=== PATIENT | female | born 1955 | race Caucasian/White ===

== ENCOUNTER → 2019-04-23 15:50 | Outpatient (CLI) | payer OTHER, SELFPAY | PROVIDERS: Family Provider Family Medicine; PCP Family Medicine; Referring Provider Otolaryngology Otolaryngology/Facial Plastic Surgery; Visit Provider Otolaryngology Otolaryngology/Facial Plastic Surgery | DX: J02.9 Acute pharyngitis, unspecified (principal) | CPT/HCPCS: 87070 ==

== ENCOUNTER → 2019-06-19 09:37 | Outpatient (CLI) | payer OTHER, SELFPAY ==
--- NOTE | 2019-06-19 09:41 | BI_ITS ---
MAMMOGRAPHY - BILATERAL SCREENING REASON FOR EXAM: Female, 63 years old. Routine annual screening examination. PERTINENT HISTORY: Non-contributory. TECHNIQUE: Digital bilateral breast selene (3D mammographic acquisition) in the CC and MLO projections. 2-D mediolateral oblique (MLO) and craniocaudad (CC) views of both breasts were obtained. CAD: Full Field Digital Mammography with Computer Added Detection was performed. COMPARISON: Comparison is made with prior examination dated March 26, 2018. FINDINGS: Breast Composition: The breasts are extremely dense, which lowers the sensitivity of mammography. There are no dominant masses or suspicious calcifications. No other significant abnormalities are identified. There has been no significant change since the prior study. BI/SCREEN MAMM (CAD) W/SELENE BILAT IMPRESSION: Stable bilateral screening mammogram. Yearly follow-up mammogram recommended. (A) ASSESSMENT CATEGORY: BIRADS Category 1: Negative. A letter regarding these results will be sent to the patient by the facility within 30 days. Approximately 10% of breast cancers are not detected by mammography. A normal mammogram should not delay biopsy of a clinically suspicious abnormality. [id number] Electronically Signed: Agustin Tejada, at 8:30 EST , Service support ,
== END ==
PROVIDERS: Family Provider Family Medicine; PCP Family Medicine; Referring Provider Family Medicine; Visit Provider Family Medicine
DX: Z12.31 Encounter for screening mammogram for malignant neoplasm of breast (principal)
CPT/HCPCS: 77063; 77067

== ENCOUNTER → 2020-07-07 10:32 | Outpatient (CLI) | payer OTHER, SELFPAY ==
--- NOTE | 2020-07-07 10:34 | BI_ITS ---
MAMMOGRAPHY - BILATERAL SCREENING REASON FOR EXAM: Female, 64 years old. Routine annual screening examination. PERTINENT HISTORY: Screening TECHNIQUE: Digital bilateral breast selene (3D mammographic acquisition) in the CC and MLO projections. 2-D mediolateral oblique (MLO) and craniocaudad (CC) views of both breasts were obtained. CAD: Full Field Digital Mammography with Computer Added Detection was performed. COMPARISON: None. FINDINGS: Breast Composition: Dense There are no dominant masses or suspicious calcifications. No other significant abnormalities are identified. BI/SCREEN MAMM (CAD) W/SELENE BILAT IMPRESSION: Stable bilateral screening mammogram. Yearly follow-up mammogram recommended. (A) ASSESSMENT CATEGORY: BIRADS Category 1: Negative. A letter regarding these results will be sent to the patient by the facility within 30 days. Approximately 10% of breast cancers are not detected by mammography. A normal mammogram should not delay biopsy of a clinically suspicious abnormality. [id number] Electronically Signed: Gurjit Chauhan, at 17:02 EST Tel , Service support ,
== END ==
PROVIDERS: PCP Family Medicine; Referring Provider Family Medicine; Visit Provider Family Medicine
DX: Z12.31 Encounter for screening mammogram for malignant neoplasm of breast (principal)
CPT/HCPCS: 77063; 77067

== ENCOUNTER → 2020-10-18 10:53 | Outpatient (CLI) | payer OTHER, SELFPAY ==
[2020-10-18 10:07] VITALS: BMI 26.9
[2020-10-18 11:06] LABS: Absolute Lymphocyte Count 1.98 X10^3/uL (0.83-4.51); Absolute Neutrophil Count 3.1 X10^3/uL (2.0-7.7); Basophil# 0.05 X10^3/uL; Basophil% 0.9 % (0-1); Eosinophil# 0.19 X10^3/uL; Eosinophils% 3.2 % (0-5); Hematocrit 36.6 % (37-47); Lymphocyte # 1.98 X10^3/ul (4.0); Lymphocyte % 33.8 % (19-41); Mean Corp Hgb Conc 30.1 g/dL (32-36); Mean Corpuscular Hgb 24.8 pg (27.0-32.0); Mean Corpuscular Volume 82.4 fL (81-99); Monocyte# 0.52 X10^3/uL; Monocyte% 8.9 % (0-10); NRBC Flagged by Analyzer 0 % (0-5); Neutrophil # 3.09 X10^3/uL (2.7-7.7); Neutrophil % 52.9 % (47-70); Platelet Count 411 K/mm3 (150-450); RBC Distribution Width CV 16.4 % (11.6-14.6); RBC Distribution Width SD 48.4 fl (35.1-43.9); Red Blood Count 4.44 M/mm3 (4.2-5.4); White Blood Count 5.9 K/mm3 (4.4-11.0)
[2020-10-21 08:47] LABS: Immunoglobulin E 3 IU/mL (6-495)
[2020-10-21 09:08] LABS: Alternaria tenuis <0.10 kU/L (Class 0); Ash, White <0.10 kU/L (Class 0); Aspergillus fumigatus <0.10 kU/L (Class 0); Bermuda Grass <0.10 kU/L (Class 0); Birch <0.10 kU/L (Class 0); Black Walnut <0.10 kU/L (Class 0); Cat Hair / Dander,Stand <0.10 kU/L (Class 0); Cedar, Mountain <0.10 kU/L (Class 0); Cladosporium herbarum <0.10 kU/L (Class 0); Cockroach, American <0.10 kU/L (Class 0); Cottonwood <0.10 kU/L (Class 0); D farinae Mite <0.10 kU/L (Class 0); D pteronyssinus <0.10 kU/L (Class 0); Dog Epithelia <0.10 kU/L (Class 0); Elm, American White <0.10 kU/L (Class 0); Immunoglobulin E 4 IU/mL (6-495); Maple/Box Elder <0.10 kU/L (Class 0); Mulberry, White <0.10 kU/L (Class 0); Oak, White <0.10 kU/L (Class 0); Pecan <0.10 kU/L (Class 0); Penicillium Notatum <0.10 kU/L (Class 0); Pigweed, Rough <0.10 kU/L (Class 0); Ragweed, Short/Common <0.10 kU/L (Class 0); Russian Thistle <0.10 kU/L (Class 0); Sheep Sorrel <0.10 kU/L (Class 0); Sycamore, American <0.10 kU/L (Class 0); Timothy Grass <0.10 kU/L (Class 0)
[2020-10-21 09:48] LABS: Mouse Urine <0.10 kU/L (Class 0)
== END ==
PROVIDERS: Referring Provider Internal Medicine Critical Care Medicine; Visit Provider Internal Medicine Critical Care Medicine
DX: R05 Cough (principal)
CPT/HCPCS: 36415; 82785; 85025; 86003

== ENCOUNTER → 2020-11-02 14:47 | Outpatient (CLI) | payer OTHER, SELFPAY ==
[2020-10-18 10:07] VITALS: BMI 26.9
--- NOTE | 2020-11-02 14:51 | CT_ITS ---
STUDY: CT CHEST WITH CONTRAST REASON FOR EXAM: Female, 65 years old. CHRONIC COUGH RADIATION DOSAGE (If Supplied By Facility): CTDIvol = ( 9.66 ) mGy, DLP = ( 221.78 ) mGycm TECHNIQUE: Transaxial imaging was performed following intravenous administration of IV 100mL Isovue-300. Multiplanar coronal and sagittal images were reformatted. Individualized dose optimization techniques were used for this CT. COMPARISON: None. FINDINGS: Small benign-appearing bilateral axillary lymph nodes. The lungs are normal. There is no demonstrated pleural abnormality. There are calcifications of the coronary arteries. Normal mediastinum. Normal hilar regions. Normal enhanced pulmonary arteries. Normal aorta arch and descending thoracic aorta. Normal osseous structures. Fatty infiltration of the liver. 1 cm cyst in the left lobe of the liver. CT/Chest WITH Contrast IMPRESSION: No acute abnormality is seen Electronically Signed: Agustin Tejada MD at 11:30 EDT , Service support ,
[2020-11-02 15:25] LABS: CREATININE FINGERSTICK 1.4 mg/dL (0.55-1.02)
== END ==
DX: R05 Cough (principal)
CPT/HCPCS: 71260

== ENCOUNTER → 2021-03-12 07:35 | Outpatient (CLI) | payer OTHER, SELFPAY ==
[2020-11-29 09:38] VITALS: BMI 26.6
--- NOTE | 2021-03-12 07:39 | CT_ITS ---
INDICATION: LLQ PAIN DIVERTICULITIS EXAMINATION: CT ABDOMEN AND PELVIS WITH CONTRAST - CT Abdomen And Pelvis W/ Contrast Injection TECHNIQUE: Helically acquired images were obtained of the abdomen and pelvis following IV contrast. A radiation dose optimization technique was used for this scan. IV Contrast dosage and agent: EXAM DESCRIPTION: CLINICAL HISTORY: 65 years Female, LLQ PAIN DIVERTICULITIS COMPARISON: Prior CT scan of the abdomen and pelvis obtained on 09/16/2015 TECHNIQUE: A CT scan of the abdomen and pelvis was performed initially without than with IV contrast contrast administration. Oral contrast was also administered. Coronal and sagittal reconstruction images were reviewed. This exam was performed according to our departmental dose-optimization program, which includes automated exposure control, adjustment of the mA and/or kV according to patient size and/or use of iterative reconstruction technique. FINDINGS: The lung bases and the base of the heart are normal. The liver contains a simple cyst in the left lobe of the liver, but is otherwise normal.The spleen is normal.The adrenal glands are normal.The head, body, and tail of the pancreas are normal. The right and left kidneys were examined and appear to be normal. Both ureters appear to be normal, and no obstructive uropathy is identified. The abdominal aortal is normal along its course and distribution. No paraortic lymphadenopathy is seen. No abdominal masses or lesions are seen. The CT scan of the pelvis was then reviewed. The common iliac vessels, external iliac vessels, and common femoral vessels are normal along their course and distribution No pelvis masses or lesions are seen. Diverticulosis is noted involving the distal descending and sigmoid portions of the colon. The appendix is not seen. No pericecal inflammatory reaction is seen. Bone scanning windows of the lumbar spine and pelvis were reviewed in the coronal and sagittal planes and appear to be normal. CT/Abdomen/Pelvis WITH Contrast IMPRESSION: Sigmoid diverticulosis is identified. No evidence of diverticulitis or other abnormalities are seen. Electronically Signed: Gurjit Chauhan DO at 9:42 EDT Tel , Service support ,
[2021-03-12 07:55] LABS: CREATININE FINGERSTICK 0.8 mg/dL (0.55-1.02); EGFR FINGERSTICK > 60.0000 mL/min (>60)
== END ==
PROVIDERS: PCP Family Medicine; Referring Provider Internal Medicine Gastroenterology; Visit Provider Internal Medicine Gastroenterology
DX: K57.30 Diverticulosis of large intestine without perforation or abscess without bleeding (principal)
CPT/HCPCS: 74177; Q9967

== ENCOUNTER 2021-08-13 07:52 | Outpatient (CLI) | payer OTHER, SELFPAY ==
--- NOTE | 2021-08-13 07:55 | BI_ITS ---
MAMMOGRAPHY - BILATERAL SCREENING REASON FOR EXAM: Female, 65 years old. Routine annual screening examination. PERTINENT HISTORY: Non-contributory. Remote right excisional breast biopsy. TECHNIQUE: Digital bilateral breast selene (3D mammographic acquisition) in the CC and MLO projections. 2-D mediolateral oblique (MLO) and craniocaudad (CC) views of both breasts were obtained. CAD: Full Field Digital Mammography with Computer Added Detection was performed. COMPARISON: Comparison is made with prior study in 07/07/2020 and 06/19/2019. FINDINGS: Breast Composition: The breasts are heterogeneously dense, which may obscure small masses. There are no dominant masses or suspicious calcifications. Stable small benign-appearing bilateral axillary lymph nodes. No other significant abnormalities are identified. There has been no significant change since the prior study. BI/SCRN MAMM (CAD)W/SELENE BILAT IMPRESSION: Stable bilateral screening mammogram. Yearly follow-up mammogram recommended. (A) ASSESSMENT CATEGORY: BIRADS Category 2: Benign. A letter regarding these results will be sent to the patient by the facility within 30 days. Approximately 10% of breast cancers are not detected by mammography. A normal mammogram should not delay biopsy of a clinically suspicious abnormality. [id number] Electronically Signed: Agustin Tejada MD at 8:35 EST , Service support ,
== END 2021-08-13 23:59 | disposition home or self-care (01) ==
LOC: OPBI 07:53
PROVIDERS: PCP Family Medicine; Visit Provider Family Medicine
DX: Z12.31 Encounter for screening mammogram for malignant neoplasm of breast (principal)
CPT/HCPCS: 77063; 77067

== ENCOUNTER → 2022-07-05 | Outpatient (CLI) | payer OTHER, SELFPAY ==
--- NOTE | 2022-07-05 09:21 | BI_ITS ---
MAMMOGRAPHY - BILATERAL SCREENING 3-D TOMOSYNTHESIS REASON FOR EXAM: Female, 66 years old. Generalized breast pain and tenderness for years. Gradually getting worse over the past year. PERTINENT HISTORY: July 07, 2020, August 13, 2021.. TECHNIQUE: 2-D mammograms and 3-D Tomosynthesis of the breast (s) were performed. CAD was performed. COMPARISON: None. FINDINGS: The breast composition is heterogeneously dense that can obscure small breast masses. No dominant masses, suspicious microcalcifications, architectural distortion, skin thickening or retraction. No significant change since the prior study. BI/DIAG MAMM W/CAD, BILAT IMPRESSION: No interval change and no mammographic signs of malignancy. Routine yearly mammograms recommended. ASSESSMENT CATEGORY: BIRADS Category 1: Negative. A letter regarding these results will be sent to the patient by the facility within 30 days. FOLLOW UP RECOMMENDATION: Yearly follow up mammogram recommended. (A) Approximately 10% of breast cancers are not detected by mammography. A normal mammogram should not delay biopsy of a clinically suspicious abnormality. Electronically Signed: Rafael Shepherd, at 10:13 [facility] ,
== END | disposition home or self-care (01) ==
LOC: OPBI 09:20
PROVIDERS: PCP Family Medicine; Referring Provider Student in an Organized Health Care Education/Training Program; Visit Provider Student in an Organized Health Care Education/Training Program
DX: N64.4 Mastodynia (principal)
CPT/HCPCS: 77062; 77066; G0279

== ENCOUNTER → 2023-06-18 | Outpatient (CLI) | payer OTHER, MEDICARE, SELFPAY | END | disposition home or self-care (01) | LOC: LAB 11:30 | PROVIDERS: PCP Family Medicine; Referring Provider Ophthalmology; Visit Provider Ophthalmology | DX: H04.123 Dry eye syndrome of bilateral lacrimal glands (principal); H16.143 Punctate keratitis, bilateral | CPT/HCPCS: 36415 ==

== ENCOUNTER → 2023-09-01 | Outpatient (CLI) | payer MEDICARE, OTHER, SELFPAY ==
--- NOTE | 2023-09-01 12:10 | BI_ITS ---
MAMMOGRAPHY - BILATERAL SCREENING REASON FOR EXAM: Female, 68 years old. Routine annual screening examination. PERTINENT HISTORY: Non-contributory. Remote right excisional breast biopsy. TECHNIQUE: Digital bilateral breast selene (3D mammographic acquisition) in the CC and MLO projections. 2-D mediolateral oblique (MLO) and craniocaudad (CC) views of both breasts were obtained. CAD: Full Field Digital Mammography with Computer Added Detection was performed. COMPARISON: Comparison is made with prior study dated July 05, 2022 and August 13, 2021. FINDINGS: Breast Composition: The breasts are heterogeneously dense, which may obscure small masses. There are no dominant masses or suspicious calcifications. No other significant abnormalities are identified. There has been no significant change since the prior study. BI/SCRN MAMM (CAD)W/SELENE BILAT IMPRESSION: Stable bilateral screening mammogram. Yearly follow-up mammogram recommended. (A) ASSESSMENT CATEGORY: BIRADS Category 1: Negative. A letter regarding these results will be sent to the patient by the facility within 30 days. Approximately 10% of breast cancers are not detected by mammography. A normal mammogram should not delay biopsy of a clinically suspicious abnormality. [id number] Electronically Signed: Agustin Tejada MD at 15:10 EST ,
== END | disposition home or self-care (01) ==
LOC: OPBI 12:08
PROVIDERS: PCP Family Medicine; Referring Provider Family Medicine; Visit Provider Family Medicine
DX: Z12.31 Encounter for screening mammogram for malignant neoplasm of breast (principal)
CPT/HCPCS: 77063; 77067

== ENCOUNTER → 2024-03-09 | Outpatient (CLI) | payer MEDICARE, OTHER, SELFPAY ==
--- NOTE | 2024-03-09 09:58 | RAD_ITS ---
STUDY: X-RAY - ESOPHAGUS (BARIUM SWALLOW) WITH FLUOROSCOPY REASON FOR EXAM: Female, 68 years old. GERD, DYSPHAGIA *12MM TABLET* TECHNIQUE: 14 view(s) of the esophagus were obtained following swallowing of barium. FLUOROSCOPY TIME (if supplied): (18 seconds) minutes/seconds. 8.79 mGy. COMPARISON: None. FINDINGS: There is no demonstrated esophageal foreign body. There is no demonstrated stricture or mucosal abnormality. Normal gastroesophageal junction, without a demonstrated hiatal hernia. The patient ingested a 12 mm tablet of barium without any difficulty. Normal visualized aortic arch and descending thoracic aorta. Normal visualized pulmonary parenchyma. Normal visualized osseous structures of the thorax. RAD/Esophagus Dual Contrast IMPRESSION: Normal plain film x-ray examination (barium swallow) of the esophagus. Electronically Signed: Agustin Tejada MD at 11:15 EDT ,
== END | disposition home or self-care (01) ==
LOC: RAD 09:52
PROVIDERS: PCP Family Medicine; Referring Provider Internal Medicine Gastroenterology; Visit Provider Internal Medicine Gastroenterology
DX: K21.9 Gastro-esophageal reflux disease without esophagitis (principal); R47.02 Dysphasia
CPT/HCPCS: 74221

== ENCOUNTER → 2024-03-11 | Outpatient (CLI) | payer MEDICARE, OTHER, SELFPAY | END | disposition home or self-care (01) | LOC: LABSPEC 15:17 | PROVIDERS: PCP Family Medicine; Referring Provider Otolaryngology; Visit Provider Otolaryngology | DX: J02.9 Acute pharyngitis, unspecified (principal) | CPT/HCPCS: 87070; 87077 ==

== ENCOUNTER → 2024-04-13 | Outpatient (CLI) | payer MEDICARE, OTHER, SELFPAY | END | disposition home or self-care (01) | LOC: LABSPEC 15:24 | PROVIDERS: PCP Family Medicine; Referring Provider Otolaryngology; Visit Provider Otolaryngology | DX: J02.9 Acute pharyngitis, unspecified (principal) | CPT/HCPCS: 87070 ==

== ENCOUNTER → 2024-06-08 | Outpatient (CLI) | payer MEDICARE, OTHER, SELFPAY ==
[2024-06-08 11:53] LABS: Absolute Lymphocyte Count 1.68 X10^3/uL (0.83-4.51); Absolute Neutrophil Count 2.7 X10^3/uL (2.0-7.7); Basophil# 0.03 X10^3/uL; Basophil% 0.6 % (0-1); Eosinophil# 0.05 X10^3/uL; Hematocrit 35.1 % (37-47); Hemoglobin 11.4 g/dL (12.0-15.0); Lymphocyte # 1.68 X10^3/ul (0.83-4.51); Lymphocyte % 34.7 % (19-41); Mean Corp Hgb Conc 32.5 g/dL (32-36); Mean Corpuscular Hgb 30.6 pg (27.0-32.0); Mean Corpuscular Volume 94.1 fL (81-99); Mean Platelet Vol. 9.3 fl (6.2-12.0); Monocyte# 0.35 X10^3/uL; Monocyte% 7.2 % (0-10); NRBC Flagged by Analyzer 0 % (0-5); Neutrophil # 2.72 X10^3/uL (2.7-7.7); Neutrophil % 56.3 % (47-70); Platelet Count 295 K/mm3 (150-450); RBC Distribution Width CV 13.3 % (11.6-14.6); RBC Distribution Width SD 45.4 fl (35.1-43.9); Red Blood Count 3.73 M/mm3 (4.2-5.4); White Blood Count 4.8 K/mm3 (4.4-11.0)
[2024-06-08 12:00] LABS: Erythrocyte Sedimentation Rate 2 mm/hr (0-30)
[2024-06-08 12:34] LABS: ALB/GLOB Ratio 1.2 RATIO (0.9-2.4); AST(SGOT) 20 U/L (15-37); Alanine Aminotransfer ALT/SGPT 30 U/L (13-56); Albumin, Serum 3.9 g/dL (3.2-5.0); Alkaline Phosphatase 94 U/L (45-117); Anion Gap 4 (5-15); BUN 8 mg/dL (7-18); BUN/Creat Ratio 8.3 RATIO (10-20); CRP < 2.90 mg/L (0.0-3.0); Calcium,Total 9.3 mg/dL (8.5-10.1); Chloride 109 mmol/L (98-107); Creatinine, Serum 0.97 mg/dL (0.55-1.02); EST Glomerular Filtration Rate 61 mL/min (>60); Est Glom Filt Rate - Afr Amer 74 mL/min (>60); Free T3 2.8 pg/mL (2.18-3.98); Globulin 3.2 g/dL (2.2-4.2); Glucose 96 mg/dL (74-106); LDH 154 U/L (84-246); Potassium 3.6 mmol/L (3.5-5.1); Protein, Total 7.1 g/dL (6.4-8.2); Sodium Level 140 mmol/L (136-145); T4 Free Direct 0.91 ng/dL (0.76-1.46)
[2024-06-14 17:07] LABS: Anti-Centromere B Ab <0.2 AI (0.0-0.9); Anti-Chromatin <0.2 AI (0.0-0.9); Anti-Jo <0.2 AI (0.0-0.9); Anti-Scleroderma-70 AB <0.2 AI (0.0-0.9); Anti-dsDNA Ab <1 IU/mL (0-9); Beef <0.10 kU/L (Class 0); Chocolate <0.10 kU/L (Class 0); Codfish <0.10 kU/L (Class 0); Corn <0.10 kU/L (Class 0); Egg, Whole <0.10 kU/L (Class 0); Milk (Cow) <0.10 kU/L (Class 0); Mussels <0.10 kU/L (Class 0); Peanut <0.10 kU/L (Class 0); Pork <0.10 kU/L (Class 0); RNP Ab 0.3 AI (0.0-0.9); SJOGREN'S Anti-SS-A test < 0.2 AI (0.0-0.9); SJOGREN'S Anti-SS-B test < 0.2 AI (0.0-0.9); Salmon <0.10 kU/L (Class 0); Shrimp <0.10 kU/L (Class 0); Smith Ab <0.2 AI (0.0-0.9); Soybean <0.10 kU/L (Class 0); Tuna <0.10 kU/L (Class 0); Wheat <0.10 kU/L (Class 0)
[2024-06-15 00:07] LABS: ACCA 12 units (0-90); ALCA 4 units (0-60); AMCA 53 units (0-100); Albumin 4.2 g/dL (2.9-4.4); Alpha-1-Globulins 0.2 g/dL (0.0-0.4); Alpha-2-Globulins 0.5 g/dL (0.4-1.0); Cytoplasmic Ab (C-ANCA) <1:20 titer (Neg:<1:20); Endomysial Antibody IgA Negative (Negative); Gamma Globulin 0.7 g/dL (0.4-1.8); Immunoglobulin A 109 mg/dL (87-352); Immunoglobulin E < 2 IU/mL (6-495); Immunoglobulin G 745 mg/dL (586-1602); Immunoglobulin M 135 mg/dL (26-217); PROEL- TOTAL PROTEIN 6.6 g/dL (6.0-8.5); Perinuclear Ab (P-ANCA) <1:20 titer (Neg:<1:20); gASCA 31 units (0-50); t-Transglutaminase IgA <2 U/mL (0-3)
== END | disposition home or self-care (01) ==
LOC: LAB 11:21
PROVIDERS: PCP Family Medicine; Referring Provider Student in an Organized Health Care Education/Training Program; Visit Provider Student in an Organized Health Care Education/Training Program
DX: K21.9 Gastro-esophageal reflux disease without esophagitis (principal); K58.9 Irritable bowel syndrome, unspecified; R19.7 Diarrhea, unspecified
CPT/HCPCS: 36415; 80053; 82784; 82785; 83516; 83615; 84165; 84439; 84443; 84481; 85025; 85652; 86003; 86005; 86036; 86037; 86140; 86225; 86235; 86255; 86334; 86671

== ENCOUNTER → 2024-06-19 | Outpatient (CLI) | payer MEDICARE, OTHER, SELFPAY ==
[2024-06-23 14:10] LABS: Calprotectin, Stool 54 ug/g (0-120)
[2024-06-23 15:09] LABS: Pancreatic Elastase, Fecal > 800 (>200)
== END | disposition home or self-care (01) ==
LOC: LABSPEC 10:28
PROVIDERS: PCP Family Medicine; Referring Provider Student in an Organized Health Care Education/Training Program; Visit Provider Student in an Organized Health Care Education/Training Program
DX: R19.7 Diarrhea, unspecified (principal); K58.9 Irritable bowel syndrome, unspecified; K21.9 Gastro-esophageal reflux disease without esophagitis
CPT/HCPCS: 82653; 83630; 83993; 87177; 87209; 87329; 87493; 87506

== ENCOUNTER → 2024-07-22 | Outpatient (CLI) | payer MEDICARE, OTHER, SELFPAY ==
--- NOTE | 2024-07-22 12:40 | NM_ITS ---
CLINICAL: 68-year-old female with history of refractory gastroesophageal reflux disease. SEMI-SOLID PHASE 99m Tc SULFUR COLLOID GASTRIC EMPTYING STUDY COMPARISON: None available FINDINGS: The patient was administered 1.2 mCi of 99m Tc sulfur colloid mixed with oatmeal and consumed per os. Image acquisitions in the anterior-posterior projections were obtained for 60 minutes. There is prompt visualization of the stomach. There is no gastroesophageal reflux identified. The T ? linear fit was calculated to be 27.39 minutes, (Normal: 12-56 minutes). NM/Gastric Emptying Study IMPRESSION: 1. NORMAL 99m Tc sulfur colloid semi-solid phase (oatmeal) gastric emptying imaging examination. A. There is normal and preserved semi-solid phase gastric emptying compared to normal controls. (Josette et al, J Nucl Med Tech 38: 186, 2010). Electronically Signed: Vidal Escobedo DO at 10:42 EST ,
== END | disposition home or self-care (01) ==
LOC: NM 12:39
PROVIDERS: PCP Family Medicine; Referring Provider Student in an Organized Health Care Education/Training Program; Visit Provider Student in an Organized Health Care Education/Training Program
DX: K21.9 Gastro-esophageal reflux disease without esophagitis (principal)
CPT/HCPCS: 78264; A9541

== ENCOUNTER 2024-11-05 05:23 | Day surgery (SDC) | payer MEDICARE, OTHER, SELFPAY ==
[2024-11-05] VITALS (8 sets, daily range): BP systolic 90–118; BP diastolic 52–73; PULSE 53–62; RESP 15–16; TEMP 36.8–37.1; O2SAT 95–100; BMI 26.8
--- NOTE | 2024-11-05 06:42 | PCM.PRE.AN2 ---
ASA Classification* ASA Classification ASA Classification: 2 Assessment & Plan Anesthesia* Anesthesia Assessment Anesthesia Assessment: Discussed sedation and/or anesthesia options, risks, benefits, and alternatives with patient/parents/legal guardian/POA. Questions invited. The patient/parents/legal guardian/POA seems to understand and agrees to proceed with anesthesia plan. Reviewed the physical assessment, medical history, allergy history and patient home medications list prior to surgery/procedure/anesthetic and documented any changes. Performed airway and anesthesia risk assessments. Anesthesia Type Anesthesia Type: MAC Anesthesia Focused Assessment* Temperature: 98.8 F Pulse Rate: 62 Blood Pressure: 118/73 Respiratory Rate: 16 Pulse Ox: 100 Airway Assessment Mouth opens: >3 cm Mallampati Score: II Focused Labs Anesthesia Preop lab: CBC WBC 4.8 K/mm3 (4.4-11.0) 06/08/24 11:06/08/24 RBC 3.73 M/mm3 (4.2-5.4) L 06/08/24 11:06/08/24 Hgb 11.4 g/dL (12.0-15.0) L 06/08/24 11:26 06/08/24 Hct 35.1 % (37-47) L 06/08/24 11:26 06/08/24 Plt Count 295 K/mm3 (150-450) 06/08/24 11:26 06/08/24 CHEMISTRY Potassium 3.6 mmol/L (3.5-5.1) 06/08/24 11:26 06/08/24 Sodium 140 mmol/L (136-145) 06/08/24 11:26 06/08/24 BUN 8 mg/dL (7-18) 06/08/24 11:06/08/24 Creatinine 0.97 mg/dL (0.55-1.02) 06/08/24 11:06/08/24 Glucose 96 mg/dL (74-106) 06/08/24 11:06/08/24 TSH 2.250 uIU/mL (0.358-3.740) 06/08/24 11:06/08/24 COAG Pre-Assessment Diagnosis/Proposed Procedure Planned Operative Procedure(s): CSCOPE Anesthesia History Anesthesia History - commercial title examiner: Anesthesia History - commercial title examiner Hx Hospitalization No 11/03/24 10:15 Any Problems With Anesthesia No 11/03/24 10:15 Cholinesterase deficiency No 11/03/24 10:15 You/Your Family Experience No 11/03/24 10:15 fever (hyperthermia) with Relationship Recent Exposure to Contagious No 11/05/24 05:52 Disease Does patient have nerve No 11/03/24 10:15 stimulator Patient instructed to have device shut off --Does patient have Pacemaker No 11/05/24 05:52 or ICD? When Was Last Pacemaker Check QUESTION #4 FULL TEXT: You/Your Family Experience fever (hyperthermia) with Anesthesia Last Oral Intake Last Oral intake: Last Oral Intake NPO since :30 11/05/24 05:52 Meds taken in AM with sips of Yes 11/05/24 05:52 water? Meds patient instructed to PANTOPRAZOLE 11/05/24 05:52 take am of surgery LORAZEPAM PONV PONV - commercial title examiner: PONV - commercial title examiner Female Yes 11/03/24 10:15 HX of Motion Sickness Yes 11/03/24 10:15 HX of N/V After Surgery No 11/03/24 10:15 Non-Smoker Yes 11/03/24 10:15 Duration of Surgery greater No 11/03/24 10:15 than 60 minutes Number of Risk Factors 3 11/03/24 10:15 PONV Score Moderate Risk 11/03/24 10:15 Height & Weight Height & Weight: Anesthesia: Height & Weight Height 5 ft 4 in 11/05/24 05:52 Weight: 70.8 kg 11/05/24 05:52 Body Mass Index (BMI) 26.8 11/05/24 05:52 Respiratory Assessment Respiratory Assessment - commercial title examiner: Respiratory Tract Infection Hx - commercial title examiner Hx Respiratory Tract Infection No 11/03/24 10:15 STOP Sleep Apnea STOP Sleep Apnea - commercial title examiner: STOP Sleep Apnea - commercial title examiner Hx Hypertension No 11/03/24 10:15 Hx Sleep Apnea Yes: WEARS APAP 11/03/24 10:15 CPAP No 11/03/24 10:15 BIPAP No 11/03/24 10:15 Do you snore loudly (louder than talking or can be heard Do you often feel tired/ fatigued/ sleepy during daytime? Has anyone observed you stop breathing during sleep? STOP Results Positive 11/03/24 10:15 QUESTION #5 FULL TEXT : Do you snore loudly (louder than talking or can be heard through closed doors)? Tobacco Use History Tobacco Use History - commercial title examiner: Tobacco Use History - commercial title examiner Tobacco Use Smoking Status Former smoker 11/03/24 10:15 Hx Tobacco Use No 11/03/24 10:15 Years Smoking Packs Smoked per Day Smoking Cessation Date was No - quit smoking greater 11/03/24 10:15 within the last 15 years than 15 years ago Hx Smoking Cessation Date Hx Smoking Cessation No 11/03/24 10:15 Counseling Hematologic Medial History Hematologic Hx - commercial title examiner: Hematologic Medical Hx - blood tester fowl Hx of Blood Transfusion No 11/03/24 10:15 Hx of Transfusion in last 3 No 11/03/24 10:15 Months Date of Last Transfusion (if within last 3 months) Ever experience any problems No 11/03/24 10:15 with transfusion(s)? Specify any problems Hx of Preganancy in last 3 No 11/03/24 10:15 Months Nurse Filling Out Transfusion DSCHRIBER 11/03/24 10:15 & Questions: Date: 11/03/24 11/03/24 10:15 Time: 10:17 11/03/24 10:15 Patient unable to answer at this time (ie. confused, unrespo /Reproduction History /Reproductive History - commercial title examiner: /Reproductive Hx- commercial title examiner Hx Now No 11/03/24 10:15 Gestational Age (in weeks): EDC: Hx Hx Para Hx Section SAB No 11/03/24 10:15 PFSH Medical History BiPAP (biphasic positive airway pressure) dependence Wears glasses Post-menopausal Claustrophobia Depression Anxiety Arthritis Bladder disease Low iron Easy bruising Restless legs History of hiatal hernia Esophageal spasm History of IBS History of diverticulitis Gastric reflux Former smoker History of stress test Cardiology follow-up encounter History of irregular heartbeat Home Medications ?Medication ?Instructions ?Recorded ?Last Taken ?Type estradiol 1 mg tablet 0.5 mg PO DAILY 10/17/20 11/04/24 History lorazepam 1 mg tablet 1 mg PO TID PRN Anxiety 10/17/20 11/05/24 History tramadol 50 mg tablet 50 mg PO Q8H PRN pain 10/18/20 Unknown History pantoprazole 40 mg tablet,delayed 40 mg PO QDAY 04/23/24 11/05/24 History release ascorbic acid (vitamin C) 500 mg 500 mg PO QDAY 09/07/24 11/04/24 History tablet cholecalciferol (vit D3) 137.5 mcg 1 tab PO QDAY 09/07/24 11/04/24 History (5,500 unit)-vit K2 200 mcg tablet magnesium 250 mg tablet 250 mg PO QDAY 09/07/24 11/04/24 History vits no.126-ferrous fum 1 tab PO DAILY 09/07/24 11/03/24 History 28 mg iron-folic acid 800 mcg tablet (Classic ) turmeric 400 mg capsule 400 mg PO DAILY 09/07/24 11/03/24 History vitamin B complex 1 cap PO QDAY 09/07/24 11/03/24 History famotidine 40 mg tablet 40 mg PO QHS 11/03/24 11/04/24 History Allergy/AdvReac Type Severity Reaction Status Date / Time Sulfa (Sulfonamide Allergy Other Verified 11/03/24 10:13 Antibiotics) Family History Other No pertinent family history Surgical History History of esophagogastroduodenoscopy (EGD) Hx of colonoscopy Hx of hysterectomy Hx of left knee surgery Hx of repair of ear bone Social History Smoking Status: Former smoker quit date: 08/11/02 alcohol intake: current alcohol intake frequency: a few times a week substance use type: does not use Review of Systems (Anesthesia) ROS Narrative System reviewed and no additional complaints, except as documented.
--- NOTE | 2024-11-05 07:02 | PCM.HP.STD ---
HPI - General General Date of Admission: 11/05/24 Date of Service: 11/05/24 Chief Complaint: blood in the stool HPI Narrative JORGE GOMEZ, is a 69 F who presents for colonoscopy today [facility] established 10.. with complaints of GERD and diarrhea. Pt has been on PPI therapy for many years but stopped working recently. She has tried Dexilant from a friend. Last EGD in Apr 2024 with gastris and small hiatal hernia. Normal colonoscopies in the past. *Start famotidine in the evening Biochemical work up; RAST wnl, CBC wnl, CMP wnl, IBD panel normal, stool normal GES; 27 min normal OV 1..25;Pt heartburn has been well controlled with pantoprazole and famotidine PRN. SHe still has some heartburn on occasion and with certain foods. She is happy with current treatment. She continues to have issues loose stools and frequent bm. This affects her ability to leave the house as she is worried about having a bm. Her last colonoscopy was in [address] Castillo with normal findings and diverticulosis. For the past couple of weeks, she has had blood in her stool and in the bowel. She is having rectal pain that is sharp with bm and with certain movements. [facility] Medical History BiPAP (biphasic positive airway pressure) dependence Wears glasses Post-menopausal Claustrophobia Depression Anxiety Arthritis Bladder disease Low iron Easy bruising Restless legs History of hiatal hernia Esophageal spasm History of IBS History of diverticulitis Gastric reflux Former smoker History of stress test Cardiology follow-up encounter History of irregular heartbeat Home Medications ?Medication ?Instructions ?Recorded ?Last Taken ?Type estradiol 1 mg tablet 0.5 mg PO DAILY 10/17/20 11/04/24 History lorazepam 1 mg tablet 1 mg PO TID PRN Anxiety 10/17/20 11/05/24 History tramadol 50 mg tablet 50 mg PO Q8H PRN pain 10/18/20 Unknown History pantoprazole 40 mg tablet,delayed 40 mg PO QDAY 04/23/24 11/05/24 History release ascorbic acid (vitamin C) 500 mg 500 mg PO QDAY 09/07/24 11/04/24 History tablet cholecalciferol (vit D3) 137.5 mcg 1 tab PO QDAY 09/07/24 11/04/24 History (5,500 unit)-vit K2 200 mcg tablet magnesium 250 mg tablet 250 mg PO QDAY 09/07/24 11/04/24 History vits no.126-ferrous fum 1 tab PO DAILY 09/07/24 11/03/24 History 28 mg iron-folic acid 800 mcg tablet (Classic ) turmeric 400 mg capsule 400 mg PO DAILY 09/07/24 11/03/24 History vitamin B complex 1 cap PO QDAY 09/07/24 11/03/24 History famotidine 40 mg tablet 40 mg PO QHS 11/03/24 11/04/24 History Allergy/AdvReac Type Severity Reaction Status Date / Time Sulfa (Sulfonamide Allergy Other Verified 11/03/24 10:13 Antibiotics) Family History Other No pertinent family history Surgical History History of esophagogastroduodenoscopy (EGD) Hx of colonoscopy Hx of hysterectomy Hx of left knee surgery Hx of repair of ear bone Social History Smoking Status: Former smoker quit date: 08/11/02 alcohol intake: current alcohol intake frequency: a few times a week substance use type: does not use ROS Constitutional Constitutional: Denies fatigue, fever(s), poor appetite, weight gain or weight loss Gastrointestinal Gastrointestinal: Denies belching, bloating, change in bowel habits, change in stool character, chewing difficulty, coffee ground emesis, constipation, cramping, diarrhea, dyspepsia, dysphagia, early satiety, excessive flatus, fecal incontinence, heartburn, hematemesis, hematochezia, hemorrhoids, loose stools, melena, nausea, odynophagia, rectal bleeding, tenesmus, vomiting or weight changes Vital Signs Vital Signs Vital Signs: 11/05/24 05:52 11/05/24 05:52 11/05/24 06:42 Temperature 98.8 F 98.8 F Temperature Source Temporal Pulse Rate 62 62 Respiratory Rate 16 16 Respiratory Pattern Normal Blood Pressure 118/73 118/73 Blood Pressure Mean 88 Blood Pressure Source Monitor Blood Pressure Position Semi-Fowlers Blood Pressure Location Left Arm Pulse Ox 100 100 Oxygen Delivery Method Room Air Weight Weight: 156 lb 1.396 oz Body Mass Index (BMI) 26.8 Physical Exam Const alert, oriented x3, no apparent distress and healthy appearing General Appearance: cooperative GI normal to inspection, nondistended, normoactive bowel sounds, soft to palpation, non-tender and non-distended Percussion: normal to percussion Rectal Exam: deferred Assessment & Plan Assessment/Plan (1) Frequent bowel movements: (2) Rectal pain: (3) Acid reflux: PLAN: Assessment and Plan Assessment and Plan (1) Rectal pain: Status: Acute Plan: This is a 69 yo female pt here today for f/u regarding heartburn and loose stools. Heartburn is well controlled with diet, Pantoprazole 40 mg daily and famotidine 40 mg PRN. Her main concern is her frequent bm and occasional loose stools. This prevents her form leaving the home. Stool tests were negative for inflammation and normal fecal elastase. She was positive for salmonella in her stool. Last colonoscopy in 2020 with diverticulosis. She has new sharp rectal pain with bm and movements. I recommended diltiazem/lidocaine ointment for presumed anal fissure but declined. Over the past couple of weeks she has noted blood in her stool and in the bowel. She does have a hx of diverticulosis and what sounds like an anal fissure both of which could cause this bleeding.SHe would prefer to undergo colonoscopy to assess her lower GI tract as the bleeding is worrisome to her. She will be scheduled for this. -Continue Pantoprazole 40 mg daily -Continue famotidine 40 mg PRN -Colonoscopy -f/u in 3 months (2) Acid reflux: Status: Acute (3) Frequent bowel movements: Status: Acute
--- NOTE | 2024-11-05 07:26 | PCM.POST.ANE ---
Anesthesia: Postop Eval I Current Vital Signs Temperature: 98.2 F Pulse Rate: 57 Blood Pressure: 100/52 Respiratory Rate: 15 Pulse Ox: 97 Oxygen Delivery Method: Room Air Assessment Airway patent: Yes Spontaneous unlabored respirations: Yes Mental status: Asleep nausea: No Vomiting: No Anesthesia Complication: No Fluid Hydration Crystalloid volume administer (ml): 40 Total IV fluid infused: 40 Progress Note Anesthesia document: Postop Eval 1 completed: Yes
--- NOTE | 2024-11-05 07:27 | OP.CCLET_ITS ---
11/05/2024 Herman Diaz Re : Colonoscopy procedure for Yamini Diaz This procedure was performed on Tuesday, November 05, 2024. My impressions and recommendations are as follows: Impressions : - Anal fissure found on perianal exam. - Diverticulosis in the entire examined colon. - Non-bleeding internal hemorrhoids. - The examination was otherwise normal on direct and retroflexion views. - No specimens collected. Recommendations : - Discharge patient to home. - Resume previous diet. - Continue present medications. - Repeat colonoscopy in 5 years for surveillance. My findings are described in the full procedure note, which is enclosed. If I can be of further assistance, please feel free to contact me at . Sincerely, Claude Call, 11/05/2024 7:26:27 AM This report has been signed electronically.
--- NOTE | 2024-11-05 07:27 | OP.COLON_ITS ---
Patient Name: Yamini Walker Procedure Date: 11/05/2024 6:13 AM Date of : 1955 Age: 69 Procedure: Colonoscopy Indications: Screening for colorectal malignant neoplasm Providers: Claude Call DO Referring MD: Herman Diaz Medicines: Monitored Anesthesia Care Patient Profile: This is a 69 year old female. Refer to note in patient chart for documentation of history and physical. Last Colonoscopy: date unknown. Unable to locate last colonoscopy report. Complications: No immediate complications. Procedure: Pre-Anesthesia Assessment: - Prior to the procedure, a History and Physical was performed, and patient medications and allergies were reviewed. The patient is competent. The risks and benefits of the procedure and the sedation options and risks were discussed with the patient. All questions were answered and informed consent was obtained. Patient identification and proposed procedure were verified by the physician in the pre-procedure area. Mental Status Examination: alert and oriented. Airway Examination: normal oropharyngeal airway and neck mobility. Respiratory Examination: clear to auscultation. CV Examination: normal. ASA Grade Assessment: II - A patient with mild systemic disease. After reviewing the risks and benefits, the patient was deemed in satisfactory condition to undergo the procedure. The anesthesia plan was to use monitored anesthesia care (MAC). Immediately prior to administration of medications, the patient was re-assessed for adequacy to receive sedatives. The heart rate, respiratory rate, oxygen saturations, blood pressure, adequacy of pulmonary ventilation, and response to care were monitored throughout the procedure. The physical status of the patient was re-assessed after the procedure. After I obtained informed consent, the scope was passed under direct vision. Throughout the procedure, the patient's blood pressure, pulse, and oxygen saturations were monitored continuously. The Colonoscope was introduced through the anus and advanced to the terminal ileum. The colonoscopy was performed without difficulty. The patient tolerated the procedure well. Scope In: 7:09:13 AM Scope Withdrawal Time 0 hours 6 minutes 53 seconds Scope Out: 7:19:51 AM Total Procedure Duration Time 0 hours 10 minutes 38 seconds Findings: An anal fissure was found on perianal exam. Multiple small and large-mouthed diverticula were found in the entire colon. Non-bleeding internal hemorrhoids were found during retroflexion. The hemorrhoids were Grade I (internal hemorrhoids that do not prolapse). The exam was otherwise without abnormality on direct and retroflexion views. Impression: - Anal fissure found on perianal exam. - Diverticulosis in the entire examined colon. - Non-bleeding internal hemorrhoids. - The examination was otherwise normal on direct and retroflexion views. - No specimens collected. Recommendation: - Discharge patient to home. - Resume previous diet. - Continue present medications. - Repeat colonoscopy in 5 years for surveillance. Procedure Code(s): --- Professional --- G0121, Colorectal cancer screening; colonoscopy on individual not meeting criteria for high risk CPT copyright 2021 [employer]. All rights reserved. The codes documented in this report are preliminary and upon plumbing contractor review may be revised to meet current compliance requirements. Claude Call DO 11/05/2024 7:26:27 AM This report has been signed electronically. Number of Addenda: 0 Note Initiated On: 11/05/2024 6:13 AM
--- NOTE | 2024-11-05 08:31 | PCM.POSTANE2 ---
Anesthesia Postop Eval I Sum Postop Eval Completion status Anesthesia document: Postop Eval 1 completed: Yes Anesthesia Postop Eval I Summary Anesthesia Postop Eval I Summary: Anesthesia Postop Eval I: Assessment Summary Airway patent Yes 11/05/24 07:27 [email or web address] Spontaneous unlabored Yes 11/05/24 07:27 [email or web address] respirations Mental status Asleep 11/05/24 07:27 [email or web address] nausea No 11/05/24 07:27 [email or web address] Vomiting No 11/05/24 07:27 [email or web address] Anesthesia Postop Eval I: Fluid Summary Crystalloid volume administer 40 11/05/24 07:27 [email or web address] (ml) Colloids volume administered ( ml) Blood Product volume administered (ml) Total IV fluid infused 40 11/05/24 07:27 [email or web address] Anesthesia Postop Eval I: Summary Notes Anesthesia Complication No 11/05/24 07:27 [email or web address] Anesthesia Complication Comment: Post-operative progress note Anesthesia: Postop Eval II Evaluation Mental status: Awake Pain Level: 0 nausea: No Vomiting: No
== END 2024-11-05 07:50 | disposition home or self-care (01) ==
LOC: EN 05:23 → AC 05:24
PROVIDERS: PCP Family Medicine; Referring Provider Family Medicine; Visit Provider Internal Medicine Gastroenterology
PROC: 0DJD8ZZ Inspection of Lower Intestinal Tract, Via Natural or Artificial Opening Endoscopic (ICD-10-PCS; CPT 45378; principal; 2024-11-05 06:25)
DX: Z12.11 Encounter for screening for malignant neoplasm of colon (principal); K64.0 First degree hemorrhoids; K57.30 Diverticulosis of large intestine without perforation or abscess without bleeding; K21.9 Gastro-esophageal reflux disease without esophagitis; K60.2 Anal fissure, unspecified; Z79.899 Other long term (current) drug therapy; Z87.891 Personal history of nicotine dependence
CPT/HCPCS: G0121; A4216; J2405